=== PATIENT | female | born 1940 | race Caucasian/White ===

== ENCOUNTER 2016-05-13 13:12 | Emergency (ER) | payer MEDICARE ==
--- NOTE | 2016-05-13 13:44 | RAD ---
05/13/2016 1:40 PM CHEST-AP BEDSIDE History: Shortness of breath Comparison: 10/03/2012 Findings: Single AP view of the chest is obtained. The lungs are clear with out effusion or pneumothorax. The cardiomediastinal silhouette is unremarkable.. The osseous structures are intact.. Median sternotomy wires are present. EKG leads overlie the chest. IMPRESSION: No acute intrathoracic process.
[2016-05-13 13:53] LABS: ABSOLUTE NEUTROPHIL COUNT 4.2 K/mm3 (1.8-7.7); BASO # 0.1 K/mm3 (0.0-0.2); BASO % 0.8 % (0.2-1.0); EOS # 0.2 (0.0-0.5); EOS % 3.2 % (0.9-2.9); HEMATOCRIT 37.3 % (37.0-47.0); HEMOGLOBIN 12.5 gm/l (12.0-16.0); IMM NEUT% 0.3 % (0-1); LYMPH # 1.5 (1.0-4.8); LYMPH % 22.5 % (15-45); MEAN CELL VOLUME 95.6 fl (81.0-99.0); MEAN CORPUSCULAR HEMOGLOBIN 32.1 pg (27.0-31.0); MEAN CORPUSCULAR HGB CONC 33.5 g/dl (33.0-37.0); MEAN PLATELET VOLUME 8.6 fl (7.4-10.4); MONO # 0.6 (0.0-0.8); MONO % 9.7 % (4-12); NEUT % 63.5 % (43-75); PLATELET COUNT 298 K/mm3 (130-400); RED CELL DISTRIBUTION WIDTH 12.9 % (11.5-14.5)
[2016-05-13 13:58] LABS: ALB/GLOB RATIO 1.5 (>1.0); ALBUMIN 4.5 gm/dL (3.5-5.7); CALCIUM 9.9 mg/dL (8.6-10.3)
[2016-05-13 14:02] LABS: TROPONIN I < 0.01 ng/ml (0.0-0.06)
[2016-05-13 14:06] LABS: CKMB ISOENZYME 3.4 ng/ml (0.6-6.3)
== END 2016-05-13 14:52 | disposition home or self-care (01) ==
LOC: ED 13:12
DX: R00.2 Palpitations (principal); I10 Essential (primary) hypertension; J44.1 Chronic obstructive pulmonary disease with (acute) exacerbation; J45.909 Unspecified asthma, uncomplicated; I25.2 Old myocardial infarction; Z87.891 Personal history of nicotine dependence; Z95.1 Presence of aortocoronary bypass graft

== ENCOUNTER 2016-05-21 07:15 | Day surgery (SDC) | payer MEDICARE ==
[~2016-05-21 07:15] MED LIST: CHONDR SULF 4%/HYALURONATE 3% 0.5 ML SYRINGE IO ONE; EPINEPHRINE 0.5 MG in BALANCED SALT IRRIG SOLN NO.2 500 ML IO ONE; NEO/POLYMYX B SULF/DEXAMETH OP OINT 14 APPLIC/3.5 G TUBE OD ONE; PHENYLEPHRINE HCL 10% 100 GTTS/5 ML BOT SOLN.DROP OD PRN; PROPARACAINE HCL 0.5% 300 GTTS/BOT SOLN.DROP OD ONE; SODIUM CHLORIDE 0.9% 500 ML IV SCH
[2016-05-21] MEDS ORDERED: SODIUM CHLORIDE 0.9% 500 ML ONE (08:02)
[2016-05-21] MEDS ORDERED: IV START KIT ONE (08:02)
[2016-05-21] MEDS: FLURBIPROFEN SODIUM 0.03% 50 GTTS/2.5 ML BOT SOLN.DROP OD SCH ×2 (08:28→08:35)
[2016-05-21] MEDS: PHENYLEPHRINE 2.5% OPHTH 40 GTTS/2 ML BOT SOLN.DROP OD SCH ×2 (08:28→08:35)
[2016-05-21] MEDS: CYCLOPENTOLATE HCL 1% 40 GTTS/2 ML BOT SOLN.DROP OD SCH ×2 (08:28→08:35)
[2016-05-21] MEDS ORDERED: MIDAZOLAM HCL 1 MG/ML 2ML VIAL ONE ×2 (08:41→09:17)
--- NOTE | 2016-05-22 09:47 | OP ---
Gretchen Sevilla [id number] DATE OF PROCEDURE: 05/21/2016 PREOPERATIVE DIAGNOSIS: Cataract OD. POSTOPERATIVE DIAGNOSIS: Pseudophakia OD. PROCEDURE: PHACOEMULSIFICATION AND POSTERIOR CHAMBER INTRAOCULAR LENS OD. ANESTHESIA: Monitored anesthesia care (MAC) with topical. SURGEON: Ebenezer Costa M.D. COMPLICATIONS: None. DESCRIPTION OF PROCEDURE: After informed consent was obtained the patient was brought back to the operating room and laid in the supine position. Cardiac monitors and intravenous access were obtained by nursing and the patient underwent intravenous sedation without complication. Once adequate sedation was in place the patient was prepped and draped in the usual sterile fashion and a lid speculum was placed in the right eye. Attention was directed to the limbus at 12 o'clock where a side port was created using a 15 degree blade. Upon entering the anterior chamber non-preserved lidocaine was placed anterior chamber followed by reinflating the anterior chamber with Viscoelastic. A clear corneal incision was then created at nine o'clock on the limbus using a grooved blade followed by a 2.4 mm keratome blade. Upon entering the anterior chamber a curvilinear capsulorrhexis was initiated and completed with the Utrata forceps. Balanced salt solution (BSS) was used to hydrodissect the cataract and the cataract was removed with a phacoemulsification unit in a phaco-chop technique. The remaining cortical remnants were removed with the irrigation and aspiration unit. Viscoelastic was used to inflate the capsular bag and anterior chamber. An intraocular lens SN60WF, 22.5 diopter lens was removed from packaging and found to be without defect. This was placed into the injector and was injected into the capsular bag without difficulty. The posterior haptic was rotated into position using a Kuglen hook. The lens was noted to be well centered in the bag. The remaining viscoelastic was removed with the irrigation and aspiration unit. Balanced salt solution (BSS) was used to reinflate the anterior chamber. The wounds were inspected and found to be watertight. The patient had Maxitrol ointment placed in the eye followed by removal of speculum and the placement of a shield placed. The patient left the operating room in good condition and there were no complications. JOB: [id number]
== END 2016-05-21 10:05 | disposition home or self-care (01) ==
LOC: SDC 07:15
PROVIDERS: ATTEND Ophthalmology
PROC: 08RJ3JZ Replacement of Right Lens with Synthetic Substitute, Percutaneous Approach (ICD-10-PCS; principal; 2016-05-21)
DX: H26.9 Unspecified cataract (principal); I10 Essential (primary) hypertension; Z88.2 Allergy status to sulfonamides
CPT/HCPCS: 66984; J2250 ×2; J7040; J0171; V2630

== ENCOUNTER 2016-06-18 08:34 | Day surgery (SDC) | payer MEDICARE ==
[~2016-06-18 08:34] MED LIST changes: +LIDOCAINE 4% (PRES FREE) 1 ML, BALANCED SALT IRRIG SOLN COMB2 3 ML, EPINEPHRINE 1.25 MG IO ONE; -NEO/POLYMYX B SULF/DEXAMETH OP OINT 14 APPLIC/3.5 G TUBE OD ONE; +NEO/POLYMYX B SULF/DEXAMETH OP OINT 14 APPLIC/3.5 G TUBE OS ONE; -PHENYLEPHRINE HCL 10% 100 GTTS/5 ML BOT SOLN.DROP OD PRN; +PHENYLEPHRINE HCL 10% 100 GTTS/5 ML BOT SOLN.DROP OS PRN; -PROPARACAINE HCL 0.5% 300 GTTS/BOT SOLN.DROP OD ONE; +PROPARACAINE HCL 0.5% 300 GTTS/BOT SOLN.DROP OS ONE
[2016-06-18] MEDS ORDERED: IV START KIT ONE (09:27)
[2016-06-18] MEDS ORDERED: SODIUM CHLORIDE 0.9% 500 ML ONE (09:28)
[2016-06-18] MEDS ORDERED: MIDAZOLAM HCL 1 MG/ML 2ML VIAL ONE ×2 (09:49→10:30)
[2016-06-18] MEDS: CYCLOPENTOLATE HCL 1% 40 GTTS/2 ML BOT SOLN.DROP OS SCH ×2 (09:53→10:00)
[2016-06-18] MEDS: FLURBIPROFEN SODIUM 0.03% 50 GTTS/2.5 ML BOT SOLN.DROP OS SCH ×2 (09:53→10:00)
[2016-06-18] MEDS: PHENYLEPHRINE 2.5% OPHTH 40 GTTS/2 ML BOT SOLN.DROP OS SCH ×2 (09:54→10:00)
[2016-06-18] MEDS ORDERED: POVIDONE-IODINE 5% OPHTH SOLN 600 GTTS/BOT SOLN.DROP ONE (10:14)
--- NOTE | 2016-06-19 09:19 | OP ---
Gretchen Sevilla [id number] DATE OF PROCEDURE: 06/18/2016 PREOPERATIVE DIAGNOSIS: Cataract OS. POSTOPERATIVE DIAGNOSIS: Pseudophakia OS. PROCEDURE: PHACOEMULSIFICATION AND POSTERIOR CHAMBER INTRAOCULAR LENS OS. ANESTHESIA: Monitored anesthesia care (MAC) with topical. SURGEON: Ebenezer Costa M.D. COMPLICATIONS: None. DESCRIPTION OF PROCEDURE: After informed consent was obtained the patient was brought back to the operating room and laid in the supine position. Cardiac monitors and intravenous access were obtained by nursing and the patient underwent intravenous sedation without complication. Once adequate sedation was in place the patient was prepped and draped in the usual sterile fashion and a lid speculum was placed in the left eye. Attention was directed to the limbus at six o'clock where a side port was created using a 15 degree blade. Upon entering the anterior chamber non-preserved lidocaine was placed anterior chamber followed by reinflating the anterior chamber with Viscoelastic. Next, a clear corneal incision was created at the three o'clock position using a groove blade followed by a 2.4 mm keratome blade. Upon entering the anterior chamber a curvilinear capsulorrhexis was initiated and completed with Utrata forceps. Balanced salt solution (BSS) was used to hydrodissect the cataract and the cataract was removed with the phacoemulsification unit in a phaco-chop technique. The remaining cortical remnants were removed with the irrigation and aspiration unit. Capsular bag and anterior chamber reinflated with viscoelastic and the intraocular lens SN60WF, 23.0 diopter lens was removed from packaging and found to be without defect. This was placed into the injector injected into the capsular bag without difficulty. The posterior haptic was rotated into position using a Kuglen hook. The lens was noted to be well centered in the bag. The viscoelastic was then removed from the anterior chamber with the irrigation and aspiration unit. Balanced salt solution (BSS) was used to reinflate the anterior chamber. The wounds were inspected and found to be watertight. The patient tolerated procedure well and left the operating room in good condition and there were no complications. JOB: [id number]
== END 2016-06-18 11:15 | disposition home or self-care (01) ==
LOC: SDC 08:34
PROVIDERS: ATTEND Ophthalmology
PROC: 08RK3JZ Replacement of Left Lens with Synthetic Substitute, Percutaneous Approach (ICD-10-PCS; principal; 2016-06-18)
DX: H26.9 Unspecified cataract (principal); I10 Essential (primary) hypertension; Z86.79 Personal history of other diseases of the circulatory system; Z98.41 Cataract extraction status, right eye; Z96.1 Presence of intraocular lens; Z88.2 Allergy status to sulfonamides
CPT/HCPCS: 66984; J2250 ×2; J7040; J0171 ×2; V2630

== ENCOUNTER 2016-07-12 08:48 | Emergency (ER) | payer MEDICARE ==
[2016-07-12 09:24] LABS: ABSOLUTE NEUTROPHIL COUNT 3.1 K/mm3 (1.8-7.7); BASO % 0.6 % (0.2-1.0); EOS # 0.2 (0.0-0.5); EOS % 3.4 % (0.9-2.9); HEMATOCRIT 34.3 % (37.0-47.0); HEMOGLOBIN 11.4 gm/l (12.0-16.0); IMM NEUT% 0.6 % (0-1); LYMPH # 0.9 (1.0-4.8); LYMPH % 20.2 % (15-45); MEAN CELL VOLUME 95.3 fl (81.0-99.0); MEAN CORPUSCULAR HEMOGLOBIN 31.7 pg (27.0-31.0); MEAN CORPUSCULAR HGB CONC 33.2 g/dl (33.0-37.0); MONO # 0.4 (0.0-0.8); MONO % 8.4 % (4-12); NEUT % 66.8 % (43-75); RED CELL DISTRIBUTION WIDTH 12.6 % (11.5-14.5)
[2016-07-12 09:36] LABS: ALB/GLOB RATIO 1.6 (>1.0); ALBUMIN 4.1 gm/dL (3.5-5.7); CALCIUM 9.3 mg/dL (8.6-10.3)
[2016-07-12 09:38] LABS: TROPONIN I < 0.01 ng/ml (0.0-0.06)
[2016-07-12 09:41] LABS: CKMB ISOENZYME 2.6 ng/ml (0.6-6.3)
== END 2016-07-12 11:30 | disposition home or self-care (01) ==
LOC: ED 08:48
DX: R55 Syncope and collapse (principal); J44.9 Chronic obstructive pulmonary disease, unspecified; J45.909 Unspecified asthma, uncomplicated; I25.2 Old myocardial infarction; Z87.891 Personal history of nicotine dependence